=== PATIENT | male | born 1960 | race Caucasian/White ===

== ENCOUNTER 2016-12-06 03:14 | Emergency (ER) | payer OTHER ==
[~2016-12-06] VITALS: Ht 182.9 cm; Wt 127.8 kg
[2016-12-06 03:20] VITALS: TEMP 36.8; Ht 182.9 cm; Wt 127.8 kg
--- NOTE | 2016-12-06 03:55 | EMERGENCY ROOM VISIT NOTE ---
History Report prepared by Argeliaibmaude: Francois Boo Under the Supervision of: Dr. Brandon Porras M.D. First contact with patient: 03:29 Chief Complaint: CHEST PAIN Stated Complaint: CHEST PAIN History of Present Illness The patient is a 56 year old male who presents to the Emergency Room with complaints of resolved epigastric pain that he woke up with earlier this morning. The pain radiated to the substernal area. The patient did not take any aspirin. The patient was also feeling nauseous but did not vomit. His blood pressure was also elevated compared to baseline. The patient is on Lisinopril 10 mg for hypertension. He is also on Metformin. The patient has a history of hiatal hernia. He had an ge seltzer and notes that the pain did resolve afterwards. The patient was moving boxes recently and has not experienced any exertional chest pain or shortness of breath. Source of History: patient Onset: this morning Position: abdomen (epigastric) Timing: resolved Modifying Factors (Relieving): other (ge seltzer) Associated Symptoms: + chest pain (radiates), + nausea, No SOB, No vomiting Review of Systems See HPI for pertinent positives & negatives. A total of 10 systems reviewed and were otherwise negative. Past Medical & Surgical Medical Problems: (1) Diabetes (2) HTN (hypertension) Family History No pertinent family history Social History Smoking Status: Never Smoker Marital Status: Housing Status: lives with family Current/Historical Medications Scheduled Lisinopril (Lisinopril), 10 MG PO DAILY Metformin Hcl (Glucophage), 500 MG PO BID Omeprazole (Omeprazole), 1 TAB PO DIRECTED Allergies Coded Allergies: No Known Allergies (Unverified , 12/06/16) Physical Exam Vital Signs Date Time Temp Pulse Resp B/P Pulse Ox O2 Delivery O2 Flow Rate FiO2 12/06/16 05:14 69 23 98 12/06/16 05:01 150/85 12/06/16 04:44 71 17 97 12/06/16 04:14 69 18 97 12/06/16 04:01 139/89 12/06/16 03:58 67 12/06/16 03:38 Room Air 12/06/16 03:32 154/87 12/06/16 03:20 36.8 71 18 156/9 96 Room Air Physical Exam GENERAL: Patient is well appearing and in no acute distress. HEENT: No acute trauma, normocephalic atraumatic, mucous membranes moist, no nasal congestion, no scleral icterus. NECK: No stridor, no adenopathy, no meningismus, trachea is midline. LUNGS: No dyspnea. Clear to auscultation and equal bilaterally. No wheeze, no rhonchi. HEART: Regular rate and rhythm. No murmurs, rubs, gallops appreciated. ABDOMEN: Soft, nontender, bowel sounds positive, no masses appreciated, no peritonitis. BACK: No midline tenderness, no CVA tenderness EXTREMITIES: Normal motion all extremities, no cyanosis, no edema. NEUROLOGIC: Alert and oriented, no acute motor or sensory deficits, no focal weakness, cranial nerves grossly intact. SKIN: No rash, no jaundice, no diaphoresis. Medical Decision & Procedures ER Provider Diagnostic Interpretation: X ray results are stated below per my interpretation: Chest: 1 view: No infiltrate, no effusion, normal cardiac border. Laboratory Results 12/06/16 03:29 Red Blood Count 4.76, Mean Corpuscular Volume 88.0, Mean Corpuscular Hemoglobin 32.6, Mean Corpuscular Hemoglobin Concent 37.0, Mean Platelet Volume 11.0, Neutrophils (%) (Auto) 56.8, Lymphocytes (%) (Auto) 28.9, Monocytes (%) (Auto) 8.9, Eosinophils (%) (Auto) 4.1, Basophils (%) (Auto) 0.5, Neutrophils # (Auto) 3.44, Lymphocytes # (Auto) 1.75, Monocytes # (Auto) 0.54, Eosinophils # (Auto) 0.25, Basophils # (Auto) 0.03 12/06/16 03:29 Test 12/06/16 03:29 12/06/16 04:12 12/06/16 05:32 White Blood Count 6.06 K/uL (4.8-10.8) Red Blood Count 4.76 M/uL (4.7-6.1) Hemoglobin 15.5 g/dL (14.0-18.0) Hematocrit 41.9 % (42-52) Mean Corpuscular Volume 88.0 fL (80-100) Mean Corpuscular Hemoglobin 32.6 pg (25-34) Mean Corpuscular Hemoglobin Concent 37.0 g/dl (32-36) Platelet Count 96 K/uL (130-400) Mean Platelet Volume 11.0 fL (7.4-10.4) Neutrophils (%) (Auto) 56.8 % Lymphocytes (%) (Auto) 28.9 % Monocytes (%) (Auto) 8.9 % Eosinophils (%) (Auto) 4.1 % Basophils (%) (Auto) 0.5 % Neutrophils # (Auto) 3.44 K/uL (1.4-6.5) Lymphocytes # (Auto) 1.75 K/uL (1.2-3.4) Monocytes # (Auto) 0.54 K/uL (0.11-0.59) Eosinophils # (Auto) 0.25 K/uL (0-0.5) Basophils # (Auto) 0.03 K/uL (0-0.2) RDW Standard Deviation 42.6 fL (36.4-46.3) RDW Coefficient of Variation 13.2 % (11.5-14.5) Immature Granulocyte % (Auto) 0.8 % Immature Granulocyte # (Auto) 0.05 K/uL (0.00-0.02) Platelet Estimate DECREASED Anion Gap 8.0 mmol/L (3-11) Est Creatinine Clear Calc Drug Dose 93.8 ml/min Estimated GFR () 77.3 Estimated GFR (Non- 66.7 BUN/Creatinine Ratio 16.3 (10-20) Calcium Level 8.5 mg/dl (8.5-10.1) Total Creatine Kinase 181 U/L (39-308) Creatine Kinase MB 4.3 ng/ml (0.5-3.6) Creatine Kinase MB Ratio 2.4 (0-3.0) Troponin I < 0.015 ng/ml (0-0.045) Beta-Hydroxybutyric Acid 1.62 mg/dL (0.2-2.81) Bedside Troponin I 0.000 ng/ml (0-0.045) Bedside Glucose 245 mg/dl (70-99) Laboratory results as reviewed by me. Medications Administered Medications (Trade) Dose Ordered Sig/Anderson Route Start Time Stop Time Status Last Admin Dose Admin Sodium Chloride (Nss 1000ml) 1,000 ml @ 999 mls/hr Q1H1M STAT IV 12/06/16 04:30 12/06/16 05:30 DC 12/06/16 04:41 999 MLS/HR Insulin Human Regular (novoLIN-R U-100 PER UNIT) 8 units NOW STAT IV 12/06/16 04:30 12/06/16 04:31 DC 12/06/16 04:47 8 UNITS ECG Indication: chest pain Rate (beats per minute): 73 Rhythm: sinus rhythm Findings: PVC, no acute ischemic change ED Course 0330: The patient was evaluated in room A11b. A complete history and physical exam was performed. 0430: Insulin Human Regular 8 units IV, NSS 1000 ml @ 999 mls/hr. 0430: The patient is feeling fine. He has no interest in staying in the hospital but is willing to wait for a repeat troponin. He admits that he has not been taking his Metformin as prescribed. The patient believes that his last platelet count was 110. 0538: Reassessed the patient. Discussed the findings with the patient. He verbalized understanding and agreement of the treatment plan. The patient is ready for discharge. Medical Decision Differential: Cardiac Ischemia (STEMI, NSTEMI, Unstable Angina, etc), Aortic Dissection, Arrhythmia, Pulmonary Embolism, Pneumonia, Pneumothorax, MSK, Infectious, Pericarditis/Myocarditis, Esophageal Rupture, Gastrointestinal, amongst other pathologies entertained. 56 yr old male arrives with complaint of epigastric discomfort radiating up substernal. Similar though more extreme than previous gerd. Denies any symptoms at current and feels well. No other symptoms and looks comfortable. BG quite high which admits he has not been taking Metformin as rx. Aware risks of this. Aware he has several CAD risk factors but is not interested in staying in hospital. Trop x 2 negative, EKG unremarkable. He is feeling fine. Should be on Prilosec but not taking thus will place BID for a week and then continue once daily. Is setting up with PCP on Wednesday. Discussed importance of follow up with PCP to discuss these symptoms. Plts regularly low from ITP. No TTP over epigastrium nor evidence of dissection, GB/liver issue and pain no consistent with pancreatitis. Impression Primary Impression: Epigastric discomfort Additional Impression: Substernal chest pain Scribe Attestation The scribe's documentation has been prepared under my direction and personally reviewed by me in its entirety. I confirm that the note above accurately reflects all work, treatment, procedures, and medical decision making performed by me. Departure Information Dispostion Home / Self-Care Prescriptions Omeprazole (OMEPRAZOLE) 20 Mg Tab 1 TAB PO DIRECTED, #45 TAB 3 Refills Take twice daily for 1 week then once daily. Prov: Brandon Porras M.D. 12/06/16 Referrals No Doctor, Assigned (PCP) Forms HOME CARE DOCUMENTATION FORM, IMPORTANT VISIT INFORMATION Patient Instructions Chest Pain - [facility], [facility] Additional Instructions There is no clear indication that the pain you were having was related to your heart, however if you develop worsening pain or other concerns return immediately or call 911. You should follow up with your primary care provider to discuss having further cardiac work-up as well as to discuss options for better control of your blood sugar. Your Platelets were 96 today. Problem Qualifiers
[2016-12-06 04:14] LABS: HEMATOCRIT 41.9 % (42-52); MEAN CORPUSCULAR HEMOGLOBIN 32.6 pg (25-34); PLATELET COUNT 96 K/uL (130-400); RED BLOOD COUNT 4.76 M/uL (4.7-6.1); WHITE BLOOD COUNT 6.06 K/uL (4.8-10.8)
[2016-12-06 04:15] LABS: BASO % 0.5 %; BASO ABS # 0.03 K/uL (0-0.2); COMPLETE YES; EOS % 4.1 %; IG% 0.8 %; LYMPH % 28.9 %; LYMPH ABS # 1.75 K/uL (1.2-3.4); MONO % 8.9 %; NEUT % 56.8 %; PLT ESTIMATE DECREASED
[2016-12-06 04:21] LABS: BLOOD UREA NITROGEN 20 mg/dl (7-18); BUN/CREATININE RATIO 16.3 (10-20); CALCIUM 8.5 mg/dl (8.5-10.1); CARBON DIOXIDE 30 mmol/L (21-32); CHLORIDE 99 mmol/L (98-107); CKMB/CK RATIO 2.4 (0-3.0); GLUCOSE 409 mg/dl (70-99); POTASSIUM 4.3 mmol/L (3.5-5.1); SODIUM 137 mmol/L (136-145)
[2016-12-06] MEDS ORDERED: SODIUM CHLORIDE 0.9% 1000ML 1,000 ML IV STA (04:30)
[2016-12-06] MEDS ORDERED: NovoLIN-R INSULIN PER UNIT CHARGE IV STA (04:30)
[2016-12-06] MEDS ORDERED: GLC/500 PO (04:32)
[2016-12-06] MEDS ORDERED: LISI-461 PO (04:32)
[2016-12-06 04:38] LABS: BETA-HYDROXYBUTYRATE 1.62 mg/dL (0.2-2.81)
[2016-12-06 05:01] VITALS: BP 150/85
[2016-12-06 05:14] VITALS: PULSE 69; O2SAT 98
[2016-12-06] MEDS ORDERED: OMEP20TA PO (05:33)
--- NOTE | 2016-12-06 08:00 | DIAGNOSTIC IMAGING REPORT ---
SINGLE VIEW CHEST CLINICAL HISTORY: Atypical chest pain. FINDINGS: An AP, portable, upright chest radiograph is obtained. No prior studies are available for comparison at the time of dictation. The examination is degraded by portable technique and patient rotation. The heart appears mildly enlarged. Pulmonary vascular structures noncongested. There is elevation of the right hemidiaphragm with mild right basilar atelectasis. The lungs and pleural spaces are otherwise clear. No pneumothorax is seen. The bony thorax is grossly intact. IMPRESSION: Mild cardiac enlargement with no acute cardiopulmonary abnormality. Electronically signed by: Wally Bundy M.D. 12/06/2016 7:59 AM Dictated Date/Time: 12/06/2016 7:58 AM
== END 2016-12-06 05:41 | disposition home or self-care (01) ==
LOC: C.EDB 03:16 → C.EDA 05:41
DX: R10.13 Epigastric pain (principal); R07.9 Chest pain, unspecified; R11.0 Nausea; I10 Essential (primary) hypertension; E11.9 Type 2 diabetes mellitus without complications

== ENCOUNTER 2017-09-13 11:24 | Emergency (ER) | payer OTHER ==
[~2017-09-13] VITALS: Ht 180.3 cm; Wt 115.2 kg
[~2017-09-13 11:24] MED LIST: GLC/500 PO; LISI-461 PO; OMEP20TA PO
[2017-09-13 11:32] VITALS: Ht 180.3 cm; Wt 115.2 kg
[2017-09-13] MEDS ORDERED: LISI5TAB PO (12:46)
--- NOTE | 2017-09-13 12:47 | EMERGENCY ROOM VISIT NOTE ---
History First contact with patient: 12:21 Chief Complaint: HYPERTENSION Stated Complaint: HIGH BLOOD PRESSURE History of Present Illness The patient is a 57 year old male who presents to the Emergency Room with complaints of high blood pressure on his reading at home. The patient states he recently purchased a home blood pressure cuff, and when he checked his blood pressure this morning prior to taking medications, he noticed his reading was 162/108. The patient states approximately 25 or 30 minutes later, he rechecked the blood pressure and noticed it was 167/113. The patient states he suspected that his blood pressure cuff needs calibrated, as he was completely asymptomatic at the time. He is here because his family told him he needed to come and be checked out. The patient denies any chest pain, coffee breathing, dizziness, visual disturbances, headache, confusion, nausea, vomiting, or any other symptoms. His states the patient has been experiencing occasional dizziness, but the patient states this only occurs while painting up high on a ladder and looking at a light. He states when he walks down the ladder, he experiences a few seconds worth of dizziness, than the symptoms improved. The patient states he is also experiencing some painful neuropathy today, which is worse than normal, but consistent with one of his "bad days." The patient does see Dr. Chamberlain regarding his diabetes, and states he is scheduled for an appointment in September. Review of Systems A complete 10 point review of systems was reviewed with the patient with pertinent positives and negatives as per history of present illness. All else were negative. Past Medical/Surgical History Medical Problems: (1) Diabetes (2) HTN (hypertension) Family History No pertinent family history Social History Smoking Status: Never Smoker Smokeless Tobacco Use: No Alcohol Use: none Drug Use: none Marital Status: Housing Status: lives with family Occupation Status: employed Current/Historical Medications Scheduled Lisinopril (Prinivil), 5 MG PO DAILY Metformin Hcl (Glucophage), 500 MG PO BID Physical Exam Vital Signs Date Time Temp Pulse Resp B/P (MAP) Pulse Ox O2 Delivery O2 Flow Rate FiO2 09/13/17 12:22 63 18 153/94 98 09/13/17 11:32 36.7 70 20 151/92 99 Room Air Physical Exam VITALS: Vitals are noted on the nurse's note and reviewed by myself. Vital signs stable. GENERAL: A 57-year-old obese white male, in no acute distress, nondiaphoretic, well-developed well-nourished. SKIN: The skin was without rashes, erythema, edema, or bruising. There is no tenting of the skin. Capillary reflex less than 2 seconds. HEAD: Normocephalic atraumatic. EARS: External auditory canals clear, tympanic membranes pearly matthews without erythema or effusion bilaterally. EYES: Pupils equal round and reactive to light and accommodation. Conjunctivae without injection, sclerae without icterus. Extraocular movements intact. Brief fundoscopic exam demonstrates no AV-nicking, cotton wool spots, or flame hemorrhages. NOSE: Patent, turbinates without inflammation or discharge. No sinus tenderness. MOUTH: Mucous membranes moist. Tonsils are not enlarged. Pharynx without erythema or exudate. Uvula midline. Airway patent. Tongue does not deviate. NECK: Supple without nuchal rigidity. No lymphadenopathy. No thyromegaly. Cervical spine is nontender. No JVD. HEART: Regular rate and rhythm without murmurs gallops or rubs. LUNGS: Clear to auscultation bilaterally without wheezes, rales or rhonchi. No dullness to percussion. No retractions or accessory muscle use. ABDOMEN: Positive bowel sounds x 4. Normal tympanic percussion. Soft, nontender, without masses or organomegaly. Robles sign negative. No guarding or rebound tenderness. MUSCULOSKELETAL: No muscle atrophy, erythema, or edema noted. Full range of motion without joint tenderness in all extremities. No tenderness to palpation. Normal gait. Strength 5/5 throughout. NEURO: Patient was alert and oriented to person place and time. Normal sensation to light and sharp touch. Deep tendon reflexes 2+ throughout. No focal neurological deficits. Medical Decision & Procedures Medical Decision The patient persisted his family's request for evaluation of his elevated blood pressure. He has been completely asymptomatic all day, and continues to be asymptomatic here in the emergency department. Blood pressure check here in the emergency department was reading in the 150s over 90s. This is slightly more elevated than the patient's blood pressure normally runs. He states to save some money, he has been taking his lisinopril every other day, so I did encourage him to take this medication daily, as I do suspect it was decreasing his blood pressure to his normal range of 130s over 80s. I had a discussion with the patient at bedside regarding proper management of elevated blood pressure, and did encourage him to follow-up regularly with his PCP and consider having regular blood pressure checks with their office. As far as the patient's dizziness, I suspect that is more positional, as the symptoms only occur when he has descending a ladder after looking straight into a light bulb without any covering over it. The patient was encouraged to return to the emergency department for any symptomatic hypertension. The patient is up-to- date with all of his screening lab work, and does see his PCP regularly due to his diabetes. I do not feel that he has a need for any workup here in the emergency department, as he is asymptomatic and his blood pressures only slightly elevated. I did encourage him to have his machine calibrated or purchased a new one. Discharge instructions reviewed, and the patient was discharged home in good condition. Differential diagnosis includes hypertension, elevated blood pressure, CVA, TIA , intracranial hemorrhage, malignant hypertension, ACS, malignancy, and others Medication Reconcilliation Current Medication List: was personally reviewed by me Blood Pressure Screening Patient's blood pressure: Elevated blood pressure Blood pressure disposition: Referred to PCP Impression Primary Impression: Elevated blood pressure reading Departure Information Dispostion Home / Self-Care Condition GOOD Referrals No Doctor, Assigned (PCP) Patient Instructions ED Hypertension Poss, High Blood Pressure, My [facility] Additional Instructions You were seen in the emergency department for elevated blood pressure readings. As discussed, however readings here in the ER were significantly lower than your readings you obtained on your machine. I do suspect the machine you purchased is inaccurate based on our multiple lower readings. While your blood pressure is not in an emergent range at this time, I do recommend you start taking your lisinopril daily, as opposed to every other day , as I do suspect some underlying high blood pressure. Please follow-up with your PCP at your regularly scheduled appointment. You may want to consider contacting the office for a BP check in 1 week. Return to the ED for symptomatic high blood pressure including chest pain, dizziness, difficulty breathing, headache, nausea, vomiting, confusion, altered mental status, visual disturbances, or other concerning symptoms.
[2017-09-13 12:58] VITALS: BP 147/101; PULSE 63; TEMP 36.7; O2SAT 98
== END 2017-09-13 12:59 | disposition home or self-care (01) ==
LOC: C.EDB 11:26 → C.EDA 12:59
DX: I10 Essential (primary) hypertension (principal); E11.9 Type 2 diabetes mellitus without complications; Z79.84 Long term (current) use of oral hypoglycemic drugs; Z79.899 Other long term (current) drug therapy